=== PATIENT | male | born 1975 | race Caucasian/White ===

== ENCOUNTER 2016-04-05 20:51 | Emergency (ER) | payer SELFPAY ==
[~2016-04-05] VITALS: Ht 185.4 cm; Wt 111.1 kg
[2016-04-06] MEDS ORDERED: LISI-334 PO (00:06)
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
[2016-04-06 00:23] VITALS: BP 165/98
[2016-04-06] MEDS ORDERED: LISINOPRIL 10 MG TABLET PO ONE (00:30)
== END 2016-04-06 00:35 | disposition home or self-care (01) ==
LOC: ER 20:51
DX: I10 Essential (primary) hypertension (principal); K21.9 Gastro-esophageal reflux disease without esophagitis; F15.10 Other stimulant abuse, uncomplicated; F12.10 Cannabis abuse, uncomplicated; Z91.14 Patient's other noncompliance with medication regimen
CPT/HCPCS: 99283